=== PATIENT | male | born 1995 | race Caucasian/White ===

== ENCOUNTER 2021-03-11 12:40 | Emergency (ER) | payer SELFPAY ==
[2021-03-11] MEDS ORDERED: Ondansetron 4 MG/2 ML SDV IVPUSH ONE (13:28)
[2021-03-11] MEDS ORDERED: Sodium Chloride 0.9% 10 ML Syringe FLUSH PRN (13:28)
[2021-03-11] MEDS ORDERED: Sodium Chloride 0.9% 1,000 ML IV SCH (13:30)
--- NOTE | 2021-03-11 15:31 | EDM.PDOCBH ---
ED HPI GENERAL MEDICAL PROBLEM - General Chief Complaint: Drug or Alcohol Abuse Stated Complaint: ALCOHOL DETOX Time Seen by Provider: 03/11/21 12:52 Source of Information: Reports: Patient, Family History Limitations: Reports: Intoxication - History of Present Illness INITIAL COMMENTS - FREE TEXT/NARRATIVE: The patient presents with his girlfriend for alcohol intoxication. [place] [address] [place]. He said he started drinking at 9:30am. He has been stressed out over work, a coworker and family stuff. He was drinking whiskey. He does not drink like this usually. He drinks maybe twice per week. He has no headache, chest pain, fever, chills, cough, abdominal pain, nausea or vomiting. He denies taking any drugs. Onset: Gradual Duration: Hour(s): Severity: Moderate Improves with: Reports: None Worsens with: Reports: None Associated Symptoms: Reports: No Other Symptoms - Related Data Allergies Allergy/AdvReac Type Severity Reaction Status Date / Time phenol [From Chloraseptic] Allergy Swollen Verified 03/11/21 13:00 Tongue Home Meds: Home Meds . [No Known Home Meds] 03/11/21 [History] Past Medical History - Past Health History Medical/Surgical History: Denies Medical/Surgical History - Infectious Disease History Infectious Disease History: Reports: Novel Coronavirus Social & Family History - Family History Family Medical History: No Pertinent Family History Cardiac: Reports: [place] : Reports: Renal Disease/Insufficiency, Other (See Below) Other Family History: grandfather and uncle that required kidney transplant Endocrine/Metabolic: Reports: Diabetes, Type I Oncologic: Reports: Lung - Tobacco Use Tobacco Use Status *Q: Current Every Day Tobacco User Years of Tobacco use: 10 Packs/Tins Daily: 1 - Caffeine Use Caffeine Use: Reports: Energy Drinks, Soda - Alcohol Use Days Per Week of Alcohol Use: 2 Number of Drinks Per Day: 10 Total Drinks Per Week: 20 - Recreational Drug Use Recreational Drug Use: No ED ROS GENERAL - Review of Systems Review Of Systems: See Below Constitutional: Reports: No Symptoms HEENT: Reports: No Symptoms Respiratory: Reports: No Symptoms Cardiovascular: Reports: No Symptoms Endocrine: Reports: No Symptoms GI/Abdominal: Reports: No Symptoms : Reports: No Symptoms Musculoskeletal: Reports: No Symptoms ED EXAM, BEHAVIORAL HEALTH - Physical Exam Exam: See Below Exam Limited By: Intoxication General Appearance: Alert, No Apparent Distress Ears: Normal External Exam Nose: Normal Inspection Head: Atraumatic, Normocephalic Neck: Normal Inspection Respiratory/Chest: No Respiratory Distress, Lungs Clear, Normal Breath Sounds Cardiovascular: Regular Rate, Rhythm, No Edema, No Murmur GI/Abdominal: Soft, Non-Tender, No Organomegaly, No Mass Back Exam: Normal Inspection Extremities: Normal Inspection COURSE, BEHAVIORAL HEALTH COMP - Course Vital Signs: Last Vital Signs Temp 97.9 F 03/11/21 12:50 Pulse 91 03/11/21 12:50 Resp 16 03/11/21 12:50 BP 130/82 03/11/21 12:50 Pulse Ox 94 L 03/11/21 12:50 Orders, Labs, Meds: Active Orders 24 hr Category Date Time Status Cardiac Monitoring [RC] . DIRECTED Care 03/11/21 13:28 Active Peripheral IV Care [RC] . DIRECTED Care 03/11/21 13:28 Active DRUG SCREEN, URINE [URCHEM] Stat Lab 03/11/21 13:28 Ordered Sodium Chloride 0.9% [Normal Saline] 1,000 ml Med 03/11/21 13:30 Active IV .BOLUS Sodium Chloride 0.9% [Saline Flush] Med 03/11/21 13:28 Active 10 ml FLUSH ASDIRECTED PRN ED Antiemetic Medication Reflex [OM.PC] Stat Oth 03/11/21 13:29 Ordered Peripheral IV Insertion Adult [OM.PC] Stat Oth 03/11/21 13:28 Ordered Medication Orders Sodium Chloride (Normal Saline) 1,000 mls @ 1,000 mls/hr IV .BOLUS LAURO Last Admin: 03/11/21 13:46 Dose: 1,000 mls/hr Documented by: LEANNE Sodium Chloride (Sodium Chloride 0.9% 10 Ml Syringe) 10 ml FLUSH ASDIRECTED PRN PRN Reason: Keep Vein Open Last Admin: 03/11/21 13:47 Dose: 10 ml Documented by: LEANNE Laboratory Tests 03/11/21 03/11/21 Range/Units 13:38 13:38 WBC 7.95 (4.23-9.07) K/mm3 RBC 4.93 (4.63-6.08) M/mm3 Hgb 15.7 (13.7-17.5) gm/dl Hct 45.6 (40.1-51.0) % MCV 92.5 H (79.0-92.2) fl MCH 31.8 (25.7-32.2) pg MCHC 34.4 (32.2-35.5) g/dl RDW Std Deviation 43.5 (35.1-43.9) fL Plt Count 287 (163-337) K/mm3 MPV 9.4 (9.4-12.3) fl Neut % (Auto) 42.9 (34.0-67.9) % Lymph % (Auto) 50.9 (21.8-53.1) % Story % (Auto) 3.9 L (5.3-12.2) % Eos % (Auto) 1.5 (0.8-7.0) Baso % (Auto) 0.5 (0.1-1.2) % Neut # (Auto) 3.41 (1.78-5.38) K/mm3 Lymph # (Auto) 4.05 H (1.32-3.57) K/mm3 Story # (Auto) 0.31 (0.30-0.82) K/mm3 Eos # (Auto) 0.12 (0.04-0.54) K/mm3 Baso # (Auto) 0.04 (0.01-0.08) K/mm3 Sodium 147 H (136-145) mEq/L Potassium 3.5 (3.5-5.1) mEq/L Chloride 108 H (98-107) mEq/L Carbon Dioxide 27 (21-32) mEq/L Anion Gap 15.5 H (5-15) BUN 5 L (7-18) mg/dL Creatinine 0.9 (0.7-1.3) mg/dL Est Cr Clr Drug Dosing 121.54 mL/min Estimated GFR (MDRD) > 60 (>60) mL/min BUN/Creatinine Ratio 5.6 L (14-18) Glucose 90 (70-99) mg/dL Calcium 8.5 (8.5-10.1) mg/dL Total Bilirubin 0.5 (0.2-1.0) mg/dL AST 55 H (15-37) U/L ALT 46 (16-63) U/L Alkaline Phosphatase 92 (46-116) U/L Total Protein 8.2 (6.4-8.2) g/dl Albumin 4.5 (3.4-5.0) g/dl Globulin 3.7 gm/dL Albumin/Globulin Ratio 1.2 (1-2) Lipase 71 L (73-393) U/L Ethyl Alcohol 0.44 (0.00) gm% Medications Generic Name Dose Route Start Last Admin Trade Name Freq PRN Reason Stop Dose Admin Sodium Chloride 1,000 mls @ 1,000 mls/hr 03/11/21 13:30 03/11/21 13:46 Normal Saline IV 1,000 mls/hr .BOLUS LAURO Administration Sodium Chloride 10 ml 03/11/21 13:28 03/11/21 13:47 Sodium Chloride 0.9% 10 Ml Syringe FLUSH 10 ml ASDIRECTED PRN Administration Keep Vein Open Discontinued Medications Generic Name Dose Route Start Last Admin Trade Name Freq PRN Reason Stop Dose Admin Ondansetron HCl 4 mg 03/11/21 13:28 03/11/21 13:47 Ondansetron 4 Mg/2 Ml Sdv IVPUSH 03/11/21 13:29 4 mg ONETIME ONE Administration Re-Assessment/Re-Exam: I ordered an IV NS 1L bolus, zofran 4mg IV, and labs. His CBC looks good. His Na was a little elevated at 147. His anion gap was elevated at 15.5. His AST is elevated at 55. His lipase is low at 71. His ETOH is very high at 0.44. He is looking to get some help. Denisse our drug abuse social worker was not in this afternoon. I will have him follow up with [facility] tomorrow morning. Departure - Departure Time of Disposition: 15:50 Disposition: Home, Self-Care 01 Condition: Good Clinical Impression: Alcohol abuse Alcohol intoxication Qualifiers: Complication of substance-induced condition: uncomplicated Qualified Code(s): F10.920 - Alcohol use, unspecified with intoxication, uncomplicated - Discharge Information *PRESCRIPTION DRUG MONITORING PROGRAM REVIEWED*: Not Applicable *COPY OF PRESCRIPTION DRUG MONITORING REPORT IN PATIENT REE: Not Applicable Referrals: PCP,None [Primary Care Provider] - Forms: ED Department Discharge Additional Instructions: Call [facility] at or 211. They do have walk in openings in the morning at 8am. Drink plenty of fluids. Please return if you are worse. Sepsis Event Note (ED) - Focused Exam Vital Signs: Vital Signs Temp Pulse Resp BP Pulse Ox 03/11/21 12:50 97.9 F 91 16 130/82 94 L - My Orders Last 24 Hours: My Active Orders 03/11/21 13:28 Cardiac Monitoring [RC] . DIRECTED Peripheral IV Care [RC] . DIRECTED DRUG SCREEN, URINE [URCHEM] Stat Sodium Chloride 0.9% [Saline Flush] 10 ml FLUSH ASDIRECTED PRN Peripheral IV Insertion Adult [OM.PC] Stat 03/11/21 13:29 ED Antiemetic Medication Reflex [OM.PC] Stat 03/11/21 13:30 Sodium Chloride 0.9% [Normal Saline] 1,000 ml IV .BOLUS - Assessment/Plan Last 24 Hours: My Active Orders 03/11/21 13:28 Cardiac Monitoring [RC] . DIRECTED Peripheral IV Care [RC] . DIRECTED DRUG SCREEN, URINE [URCHEM] Stat Sodium Chloride 0.9% [Saline Flush] 10 ml FLUSH ASDIRECTED PRN Peripheral IV Insertion Adult [OM.PC] Stat 03/11/21 13:29 ED Antiemetic Medication Reflex [OM.PC] Stat 03/11/21 13:30 Sodium Chloride 0.9% [Normal Saline] 1,000 ml IV .BOLUS
== END 2021-03-11 16:00 | disposition home or self-care (01) ==
LOC: JD.ED 12:40
DX: F10.129 Alcohol abuse with intoxication, unspecified (principal); Z88.8 Allergy status to other drugs, medicaments and biological substances; Z86.16 Personal history of COVID-19; Z72.0 Tobacco use; Y90.5 Blood alcohol level of 100-119 mg/100 ml
CPT/HCPCS: 36415; 80053; 80307; 83690; 85025; 96374; 99284; J2405; J7030

== ENCOUNTER 2021-03-13 14:15 | Emergency (ER) | payer SELFPAY ==
[2021-03-13] MEDS ORDERED: HYDROmorphone 1 MG/ML Syringe IVPUSH ONE ×2 (15:24→16:58)
[2021-03-13] MEDS ORDERED: Sodium Chloride 0.9% 10 ML Syringe FLUSH PRN (15:24)
--- NOTE | 2021-03-13 15:27 | EDM.PDOC ---
ED HPI GENERAL MEDICAL PROBLEM - General Chief Complaint: Upper Extremity Injury/Pain Stated Complaint: R ARM/WRIST INJURY Time Seen by Provider: 03/13/21 15:15 Source of Information: Reports: Patient, RN Notes Reviewed History Limitations: Reports: No Limitations - History of Present Illness INITIAL COMMENTS - FREE TEXT/NARRATIVE: Patient is a 25-year-old male who presents to the ER for evaluation of a right wrist/forearm injury. Patient was helping his father at his house, and was up on some scaffolding which is about 6 feet off of the ground. Patient fell off of a scaffolding, and fell onto an outstretched right arm. There is a visible deformity to the right wrist. But the patient states he is having pain all the way up close to his elbow. He did take some tramadol at home for pain management and states this did help the pain a little bit. Notes that he had a breakfast burrito at about 10:30 AM and that was his last food intake. Patient denies any other sick-like symptoms, fever/chills, cough/shortness of breath, nausea/vomiting/diarrhea. Patient denies any numbness or tingling in his hand, and he can wiggle his fingers but states it is very painful to do so. Right Wrist Pain Score (Numeric/FACES): 10 - Related Data Allergies Allergy/AdvReac Type Severity Reaction Status Date / Time phenol [From Chloraseptic] Allergy Severe Swollen Verified 03/13/21 15:16 Tongue Home Meds: Home Meds oxyCODONE HCl/Acetaminophen [Oxycodone-Acetaminophen 5-325] 1 each PO Q6H #20 tablet 03/13/21 [Rx] Past Medical History - Past Health History Medical/Surgical History: Denies Medical/Surgical History - Infectious Disease History Infectious Disease History: Reports: Novel Coronavirus Social & Family History - Family History Family Medical History: No Pertinent Family History Cardiac: Reports: [place] : Reports: Renal Disease/Insufficiency, Other (See Below) Other Family History: grandfather and uncle that required kidney transplant Endocrine/Metabolic: Reports: Diabetes, Type I Oncologic: Reports: Lung - Tobacco Use Tobacco Use Status *Q: Current Every Day Tobacco User Years of Tobacco use: 6 Packs/Tins Daily: 0.5 - Caffeine Use Caffeine Use: Reports: Soda - Recreational Drug Use Recreational Drug Use: No Review of Systems - Review of Systems Review Of Systems: Comprehensive ROS is negative, except as noted in HPI. ED EXAM, GENERAL - Physical Exam Exam: See Below Exam Limited By: No Limitations General Appearance: Alert, WD/WN, No Apparent Distress Respiratory/Chest: No Respiratory Distress, Lungs Clear, Normal Breath Sounds, No Accessory Muscle Use, Chest Non-Tender Cardiovascular: Normal Peripheral Pulses, Regular Rate, Rhythm, No Edema Peripheral Pulses: 2+: Radial (L), Radial (R) Extremities: Normal Capillary Refill, Limited Range of Motion (of right wrist d/t pain; pt can move his fingers, but does states it is painful to do so.) Neurological: Alert, Oriented, Normal Cognition, No Motor/Sensory Deficits Psychiatric: Normal Affect, Normal Mood Skin Exam: Warm, Dry, Intact, Normal Color, No Rash ED TRAUMA EXTREMITY PROCEDURES - Splinting Right Upper Extremity Splint Site: R wrist Pre-Procedure NV Status: Normal Post-Procedure NV Status: Normal Splint Material: Fiberglass Splint Design: Gutter (ulnar gutter short arm) Applied & Form Fitted By: Provider, Nurse Provider Post-Splint Application NV Check: NV Status Normal, Good Position Complications: No Course - Vital Signs Last Recorded V/S: Last Vital Signs Temp 97.6 F 03/13/21 15:19 Pulse 73 03/13/21 15:19 Resp 20 03/13/21 15:19 BP 130/86 03/13/21 15:19 Pulse Ox 100 03/13/21 15:19 - Orders/Labs/Meds Orders: Active Orders 24 hr Category Date Time Status Peripheral IV Care [RC] . DIRECTED Care 03/13/21 15:24 Ordered Forearm 2V Rt [CR] Stat Exams 03/13/21 15:17 Ordered Wrist 2V Rt [CR] Stat Exams 03/13/21 15:17 Taken Sodium Chloride 0.9% [Saline Flush] Med 03/13/21 15:24 Ordered 10 ml FLUSH ASDIRECTED PRN Peripheral IV Insertion Adult [OM.PC] Routine Oth 03/13/21 15:24 Ordered Medication Orders Sodium Chloride (Sodium Chloride 0.9% 10 Ml Syringe) 10 ml FLUSH ASDIRECTED PRN PRN Reason: Keep Vein Open Last Admin: 03/13/21 15:54 Dose: 10 ml Documented by: Meds: Medications Generic Name Dose Route Start Last Admin Trade Name Collette PRN Reason Stop Dose Admin Sodium Chloride 10 ml 03/13/21 15:24 03/13/21 15:54 Sodium Chloride 0.9% 10 Ml Syringe FLUSH 10 ml ASDIRECTED PRN Administration Keep Vein Open Discontinued Medications Generic Name Dose Route Start Last Admin Trade Name Collette PRN Reason Stop Dose Admin Hydromorphone HCl 1 mg 03/13/21 15:24 03/13/21 15:54 Hydromorphone 1 Mg/Ml Syringe IVPUSH 03/13/21 15:25 1 mg ONETIME ONE Administration Hydromorphone HCl 1 mg 03/13/21 16:58 03/13/21 17:14 Hydromorphone 1 Mg/Ml Syringe IVPUSH 03/13/21 16:59 1 mg ONETIME ONE Administration - Re-Assessments/Exams Free Text/Narrative Re-Assessment/Exam: 03/13/21 15:26 Patient presents to the ER for a right wrist/forearm injury. X-rays will be obtained however there is a visible deformity to his right wrist, which will likely need some sort of reduction for ongoing Ortho management. Patient will be kept n.p.o. while in the ER. He will be given 1mg IV Dilaudid for pain management. 03/13/21 15:52 Patient's wrist x-ray has been performed, there is a distal right radius fracture that looks to be impacted, angulated, and does violate the intra- articular space. He also has an ulnar styloid fracture. X-ray films reviewed by myself and Dr. Cole, I have pushed the films to [facility] in [place], to have Ortho review, to see if they would recommend trying to reduce this much at all or just splint and have him follow-up for surgical management. 03/13/21 16:13 I was able to speak with Dr. Askew Ortho specialist on-call at [facility], and he does state that this is impacted, and would likely not reduce well. He does recommend splinting the injury, and have him follow-up with Ortho for further management. I did give a courtesy call to Dr. Oliver as well even though he is not on-call, and he did agree to see the patient in clinic early next week. Departure - Departure Time of Disposition: 16:24 Disposition: Home, Self-Care 01 Condition: Good Clinical Impression: Distal radius fracture, right Qualifiers: Encounter type: initial encounter Fracture type: closed Fracture morphology: other intra-articular Qualified Code(s): S52.571A - Other intraarticular fracture of lower end of right radius, initial encounter for closed fracture Fracture of right ulnar styloid Qualifiers: Encounter type: initial encounter Fracture type: closed Fracture alignment: displaced Qualified Code(s): S52.611A - Displaced fracture of right ulna styloid process, initial encounter for closed fracture - Discharge Information *PRESCRIPTION DRUG MONITORING PROGRAM REVIEWED*: Yes *COPY OF PRESCRIPTION DRUG MONITORING REPORT IN PATIENT REE: No Instructions: Wrist Fracture Treated With Immobilization, [place] Referrals: PCP,None [Primary Care Provider] - Forms: ED Department Discharge Additional Instructions: You have been evaluated in the ED for your right wrist injury. Your x-ray demonstrated an angulated, impacted fracture of your distal right radius, that does seem to violate the articular space. This was splinted to immobilize the area at this time. You also have an ulnar styloid fracture. Please use ice as tolerated to the affected area. You may elevate the affected area to provide further relief from swelling. You may take Tylenol 500 mg or ibuprofen 600mg q6 hrs for pain relief. Please do so until you have a tolerable level of pain with activity. Do not exceed 4000mg Tylenol, Do not exceed 3200mg ibuprofen in a 24 hour time period. You were given a prescription for a strong pain medication, oxycodone/acetaminophen 5/325, please take 1 tab every 6 hours as needed for pain not relieved by Tylenol or ibuprofen alone. Please note this does contain Tylenol in it, so do not take more than 4000 mg in a 24-hour time span. These medications can be addictive, so please take as few as possible to achieve adequate pain control. These meds can also be quite constipating, recommend that you increase your oral fluid intake and take a stool softener like MiraLAX while taking these medications. This medication was electronically sent to the [place] pharmacy located in the [facility] [employer] store. Please call Ortho for follow-up and further evaluation Dr. Oliver is our orthopedic surgeon, his office number is [phone]. Please call and set up an appointment as soon as possible for further management. Please return to ED if your symptoms should change or worsen. Sepsis Event Note (ED) - Focused Exam Vital Signs: Vital Signs Temp Pulse Resp BP Pulse Ox 03/13/21 15:19 97.6 F 73 20 130/86 100 - My Orders Last 24 Hours: My Active Orders 03/13/21 15:17 Forearm 2V Rt [CR] Stat Wrist 2V Rt [CR] Stat 03/13/21 15:24 Peripheral IV Care [RC] . DIRECTED Sodium Chloride 0.9% [Saline Flush] 10 ml FLUSH ASDIRECTED PRN Peripheral IV Insertion Adult [OM.PC] Routine - Assessment/Plan Last 24 Hours: My Active Orders 03/13/21 15:17 Forearm 2V Rt [CR] Stat Wrist 2V Rt [CR] Stat 03/13/21 15:24 Peripheral IV Care [RC] . DIRECTED Sodium Chloride 0.9% [Saline Flush] 10 ml FLUSH ASDIRECTED PRN Peripheral IV Insertion Adult [OM.PC] Routine
--- NOTE | 2021-03-14 10:17 | CR ---
Right wrist: 3 views of the right wrist were obtained. Comparison: No previous study. Comminuted distal radial fracture is seen with articular extension. Posterior impaction is noted. Slightly comminuted ulnar styloid process fracture is seen. Soft tissue swelling is noted. No additional bony abnormality is appreciated. Impression: 1. Comminuted distal right radial fracture with articular extension and angulation. 2. Slightly comminuted ulnar styloid avulsion fracture. 3. Soft tissue swelling. Diagnostic code #3
--- NOTE | 2021-03-14 10:17 | CR ---
Right forearm: 2 views of the right forearm were obtained. Comparison: No prior forearm study is available. Comminuted distal radial fracture is seen with articular extension and posterior impaction. Several fracture lines are noted within the radial styloid process. Other portions of the right radius and ulna appear intact. Soft tissue swelling is noted distally. Impression: 1. Wrist fracture as described above with soft tissue swelling. 2. Other portions of the 2-view right forearm study are unremarkable. Diagnostic code #3
== END 2021-03-13 18:00 | disposition home or self-care (01) ==
LOC: JD.ED 14:15
DX: S52.611A Displaced fracture of right ulna styloid process, initial encounter for closed fracture (principal); S52.571A Other intraarticular fracture of lower end of right radius, initial encounter for closed fracture; Z86.16 Personal history of COVID-19; Z72.0 Tobacco use; Z88.8 Allergy status to other drugs, medicaments and biological substances; W12.XXXA Fall on and from scaffolding, initial encounter; Y92.009 Unspecified place in unspecified non-institutional (private) residence as the place of occurrence of the external cause
CPT/HCPCS: 29125; 73090; 73100; 96374; 96376; 99283; J1170

== ENCOUNTER → 2021-03-19 | Day surgery (SDC) | payer SELFPAY ==
[~2021-03-19] MED LIST: Acetaminophen/HYDROcodone 325-5 MG Tab PO PRN; Dexamethasone 4 MG/ML 5 ML MDV ONE; Ketamine 500 mg/10 ML MDV ONE; Ketorolac 30 MG/ML SDV ONE; Lactated Ringers 1,000 ML IV SCH; Lidocaine 1% 4 ML ONE; Lidocaine 1%/Sod Bicarbonate in NS 8.4% 1 ML Syringe IDERM PRN; Midazolam 1 MG/ML 2 ML SDV ONE; Ondansetron 4 MG/2 ML SDV ONE; Propofol 200 MG/20 ML SDV ONE; Sodium Chloride 0.9% 10 ML Syringe FLUSH PRN; fentaNYL 100 MCG/2 ML SDV ONE
--- NOTE | 2021-03-19 12:03 | PCM.PREANE ---
Preanesthetic Assessment - Procedure Proposed Procedure: Closed reduction right arm with casting - Anesthesia/Transfusion/Family Hx Anesthesia History: Prior Anesthesia Without Reaction Family History of Anesthesia Reaction: No Transfusion History: No Prior Transfusion(s) - Review of Systems General: No Symptoms Pulmonary: No Symptoms Cardiovascular: No Symptoms Gastrointestinal: No Symptoms Neurological: No Symptoms Other: Reports: None - Physical Assessment NPO Status Date: 03/18/21 NPO Status Time: 19:00 Height: 1.83 m Weight: 62 kg ASA Class: 2 Mental Status: Alert & Oriented x3 Airway Class: Mallampati = 2 Dentition: Reports: Normal Dentition Thyro-Mental Finger Breadths: 3 Mouth Opening Finger Breadths: 3 ROM/Head Extension: Full Lungs: Clear to Auscultation, Normal Respiratory Effort Cardiovascular: Regular Rate, Regular Rhythm - Allergies Allergies/Adverse Reactions: Allergies Allergy/AdvReac Type Severity Reaction Status Date / Time phenol [From Chloraseptic] Allergy Severe Swollen Verified 03/18/21 16:09 Tongue - Blood Blood Available: No Product(s) Available: None - Anesthesia Plan Pre-Op Medication Ordered: None - Acknowledgements Anesthesia Type Planned: MAC (if closed reduction, general if ORIF) Pt an Appropriate Candidate for the Planned Anesthesia: Yes Alternatives and Risks of Anesthesia Discussed w Pt/Guardian: Yes Pt/Guardian Understands and Agrees with Anesthesia Plan: Yes PreAnesthesia Questionnaire - Past Health History Medical/Surgical History: Denies Medical/Surgical History - Infectious Disease History Infectious Disease History: Reports: Novel Coronavirus - SUBSTANCE USE Tobacco Use Status *Q: Current Every Day Tobacco User Recreational Drug Use History: No - HOME MEDS Home Medications: Home Meds Acetaminophen [Tylenol Extra Strength] 1,000 mg PO Q6H PRN 03/18/21 [History] Hydrocodone/Acetaminophen [HYDROcodone-Acetaminophen 5-325 MG] 1 - 2 each PO Q6H PRN #30 tablet 03/19/21 [Rx] - CURRENT (IN HOUSE) MEDS Current Meds: Current Medications Lactated Ringer's (Ringers, Lactated) 1,000 mls @ 125 mls/hr IV ASDIRECTED LAURO Stop: 03/19/21 23:00 Lidocaine/Sodium Bicarbonate (Lidocaine 1%/Sod Bicarbonate In Ns 8.4% 1 Ml Syringe) 0.25 ml IDERM ONETIME PRN PRN Reason: Prior to IV Start Stop: 03/19/21 18:00 Sodium Chloride (Sodium Chloride 0.9% 10 Ml Syringe) 10 ml FLUSH ASDIRECTED PRN PRN Reason: Keep Vein Open Stop: 03/19/21 18:00 Discontinued Medications Dexamethasone (Dexamethasone 4 Mg/Ml 5 Ml Mdv) Confirm Administered Dose 20 mg .ROUTE .STK-MED ONE Stop: 03/19/21 11:56 Fentanyl (Fentanyl 100 Mcg/2 Ml Sdv) Confirm Administered Dose 100 mcg .ROUTE .STK-MED ONE Stop: 03/19/21 11:53 Fentanyl (Fentanyl 100 Mcg/2 Ml Sdv) Confirm Administered Dose 100 mcg .ROUTE .STK-MED ONE Stop: 03/19/21 11:54 Lidocaine HCl (Xylocaine-Mpf 1%) Confirm Administered Dose 4 mls @ as directed .ROUTE .STK-MED ONE Stop: 03/19/21 11:56 Ketamine HCl (Ketamine 500 Mg/10 Ml Mdv) Confirm Administered Dose 500 mg .ROUTE .STK-MED ONE Stop: 03/19/21 11:55 Midazolam HCl (Midazolam 1 Mg/Ml 2 Ml Sdv) Confirm Administered Dose 2 mg .ROUTE .STK-MED ONE Stop: 03/19/21 11:54 Ondansetron HCl (Ondansetron 4 Mg/2 Ml Sdv) Confirm Administered Dose 4 mg .ROUTE .STK-MED ONE Stop: 03/19/21 11:56 Propofol (Propofol 200 Mg/20 Ml Sdv) Confirm Administered Dose 200 mg .ROUTE .STK-MED ONE Stop: 03/19/21 11:53
--- NOTE | 2021-03-19 13:20 | PCM48HPAN ---
Post Anesthesia Note - EVALUATION WITHIN 48HRS OF ANESTHETIC Vital Signs in Normal Range: Yes Patient Participated in Evaluation: Yes Respiratory Function Stable: Yes Airway Patent: Yes Cardiovascular Function Stable: Yes Hydration Status Stable: Yes Pain Control Satisfactory: Yes Nausea and Vomiting Control Satisfactory: Yes Mental Status Recovered: Yes
--- NOTE | 2021-03-19 13:49 | CR ---
Right wrist: 7 fluoroscopic spot views of the right wrist were obtained during procedural reduction and fixation. Comparison Right wrist and forearm plain films of 03/13/21. Study shows reduction of previous displaced distal radial fracture. Fracture within the ulnar styloid process also appears reduced. Alignment is close to anatomic. Final 2 films show fiberglass cast in place. Impression: 1. Procedural study as noted above. Diagnostic code #2
--- NOTE | 2021-03-29 10:52 | PCM.OPNOTE ---
- General Post-Op/Procedure Note Date of Surgery/Procedure: 03/19/21 Operative Procedure(s): closed reduction and casting of right distal radius fracture Pre Op Diagnosis: displaced right distal radius fracture Post-Op Diagnosis: Same Anesthesia Technique: MAC Primary Surgeon: Darin Oliver Anesthesia Provider: Darrian Kelley Mixing Picker Tender: Shanelle Mo EBL in mLs: 0 Complications: None Condition: Good
--- NOTE | 2021-03-29 11:50 | OR ---
DATE OF OPERATION: 03/19/2021 SURGEON: Darin Oliver MD OPERATION PERFORMED: Closed reduction and short-arm casting, right distal radius fracture. PREOPERATIVE DIAGNOSIS: Displaced right distal radius fracture. POSTOPERATIVE DIAGNOSIS: Displaced right distal radius fracture. ANESTHESIA: MAC. ANESTHESIA PROVIDER: Darrian Kelley. SCREW MACHINE HAND: Shanelle Mo LPN ESTIMATED BLOOD LOSS: Not applicable. COMPLICATIONS: None. CONDITION: Stable. DESCRIPTION OF PROCEDURE: The patient was identified in the preoperative holding area. Proper site was marked and identified by the surgeon. The patient was taken back to the operating theater where, after adequate anesthesia, the patient had a time-out performed. At this time, closed reduction maneuver of manual traction and radial deviation as well as volar traction was undertaken to the right distal radius. He was found to have anatomic reduction on both AP and lateral views and 23-degree lateral views of the extra-articular right distal radius fracture. At this time, undercast padding was placed as well as a stockinette, and a short- arm cast was applied with 3-point molding in to correct for the deformity applied at that time. C-arm fluoroscopy was again utilized showing near anatomic reduction on all views. The patient was sent to the PACU in stable condition. He tolerated the procedure well. REBECCA /[id number]
== END | disposition home or self-care (01) ==
LOC: JD.SDS 11:22
PROVIDERS: ATTEND Orthopaedic Surgery
DX: S52.571A Other intraarticular fracture of lower end of right radius, initial encounter for closed fracture (principal); S52.511A Displaced fracture of right radial styloid process, initial encounter for closed fracture; F17.210 Nicotine dependence, cigarettes, uncomplicated; Y92.009 Unspecified place in unspecified non-institutional (private) residence as the place of occurrence of the external cause; Z88.8 Allergy status to other drugs, medicaments and biological substances; W17.89XA Other fall from one level to another, initial encounter; Z79.899 Other long term (current) drug therapy; Z86.16 Personal history of COVID-19
CPT/HCPCS: 25605; 76000; A9270; J1100; J1885; J2250; J2405; J2704; J3010; J7120; 01820

== ENCOUNTER 2021-07-06 11:46 | Emergency (ER) | payer SELFPAY ==
[2021-07-06] MEDS ORDERED: Sodium Chloride 0.9% 1,000 ML IV STA ×3 (12:34→17:00)
[2021-07-06] MEDS ORDERED: Sodium Chloride 0.9% 10 ML Syringe FLUSH PRN (12:34)
[2021-07-06] MEDS ORDERED: Ondansetron 4 MG/2 ML SDV IVPUSH ONE (12:54)
== END 2021-07-06 22:55 | disposition other institution (70) ==
LOC: JD.ED 11:46
DX: F10.129 Alcohol abuse with intoxication, unspecified (principal); Z88.8 Allergy status to other drugs, medicaments and biological substances; Z72.0 Tobacco use; Y90.5 Blood alcohol level of 100-119 mg/100 ml
CPT/HCPCS: 36415; 80053; 80306; 80307; 85025; 96374; 99284; J2405; J7030

== ENCOUNTER 2021-07-08 17:50 | Emergency (ER) | payer SELFPAY | END 2021-07-08 19:55 | disposition home or self-care (01) | LOC: JD.ED 17:50 | DX: F10.10 Alcohol abuse, uncomplicated (principal); Y90.0 Blood alcohol level of less than 20 mg/100 ml; Z88.8 Allergy status to other drugs, medicaments and biological substances; Z72.0 Tobacco use; Z86.16 Personal history of COVID-19 | CPT/HCPCS: 36415; 80307; 99284 ==

== ENCOUNTER 2021-07-09 09:34 | Emergency (ER) | payer SELFPAY ==
[2021-07-09] MEDS ORDERED: LORazepam 2 MG/ML SDV IVPUSH ONE (10:25)
[2021-07-09] MEDS ORDERED: Ondansetron 4 MG/2 ML SDV IVPUSH ONE (10:25)
[2021-07-09] MEDS ORDERED: Sodium Chloride 0.9% 1,000 ML IV ONE (10:26)
[2021-07-09 11:30] LABS: ACETAMINOPHEN 0 ug/mL (10-30)
== END 2021-07-09 14:20 | disposition other institution (70) ==
LOC: JD.ED 09:34
DX: R44.0 Auditory hallucinations (principal); F10.129 Alcohol abuse with intoxication, unspecified; Z88.8 Allergy status to other drugs, medicaments and biological substances; Z86.16 Personal history of COVID-19; Y90.5 Blood alcohol level of 100-119 mg/100 ml
CPT/HCPCS: 36415; 80053; 80143; 80179; 80306; 80307; 81001; 84443; 85007; 85027; 96374; 96375; 99285; J2060; J2405; J7030

== ENCOUNTER 2021-07-09 16:41 | Emergency (ER) | payer SELFPAY ==
[2021-07-09] MEDS ORDERED: chlordiazePOXIDE 25 MG Cap PO ONE (17:58)
== END 2021-07-09 18:24 ==
LOC: JD.ED 16:41
DX: R44.0 Auditory hallucinations (principal); R44.1 Visual hallucinations; F10.10 Alcohol abuse, uncomplicated; Z88.8 Allergy status to other drugs, medicaments and biological substances; Z86.16 Personal history of COVID-19
CPT/HCPCS: 99285; A9270

== ENCOUNTER 2021-11-21 17:04 | Emergency (ER) | payer MEDICAID, OTHER | END 2021-11-21 17:45 | LOC: JD.ED 17:04 | DX: F10.929 Alcohol use, unspecified with intoxication, unspecified (principal); F17.210 Nicotine dependence, cigarettes, uncomplicated; Z86.16 Personal history of COVID-19; Z88.8 Allergy status to other drugs, medicaments and biological substances | CPT/HCPCS: 99282; 99284 ==

== ENCOUNTER 2021-12-21 11:28 | Emergency (ER) | payer MEDICAID | END 2021-12-21 12:46 | disposition home or self-care (01) | LOC: JD.ED 11:28 | DX: F10.10 Alcohol abuse, uncomplicated (principal); F17.210 Nicotine dependence, cigarettes, uncomplicated; Z91.048 Other nonmedicinal substance allergy status | CPT/HCPCS: 99282; 99284 ==

== ENCOUNTER 2021-12-22 11:04 | Emergency (ER) | payer MEDICAID ==
[2021-12-22] MEDS ORDERED: Sodium Chloride 0.9% 1,000 ML IV STA (11:38)
== END 2021-12-22 17:45 | disposition home or self-care (01) ==
LOC: JD.ED 11:04
DX: F10.230 Alcohol dependence with withdrawal, uncomplicated (principal); F17.210 Nicotine dependence, cigarettes, uncomplicated; Z88.8 Allergy status to other drugs, medicaments and biological substances; Y90.1 Blood alcohol level of 20-39 mg/100 ml
CPT/HCPCS: 36415; 80053; 80143; 80179; 80306; 80307; 84443; 85007; 85027; 93005; 96360; 99284; J7030; 93010; 99283

== ENCOUNTER 2022-01-17 12:44 | Emergency (ER) | payer MEDICAID ==
[2022-01-17] MEDS ORDERED: Sodium Chloride 0.9% 10 ML Syringe FLUSH PRN (13:19)
[2022-01-17] MEDS ORDERED: Ondansetron 4 MG/2 ML SDV IVPUSH ONE (13:28)
[2022-01-17] MEDS ORDERED: Sodium Chloride 0.9% 1,000 ML IV ONE (13:28)
[2022-01-17] MEDS ORDERED: Lactated Ringers 1,000 ML IV ONE ×3 (14:43→17:47)
== END 2022-01-17 19:24 | disposition other institution (70) ==
LOC: JD.ED 12:44
DX: F10.920 Alcohol use, unspecified with intoxication, uncomplicated (principal); Z88.8 Allergy status to other drugs, medicaments and biological substances; Z72.0 Tobacco use; Z79.899 Other long term (current) drug therapy
CPT/HCPCS: 36415; 80053; 80143; 80179; 80306; 80307; 81003; 83735; 84443; 85025; 87635; 93005; 96361; 96374; 99283; J2405; J3490; J7030; J7120; U0002

== ENCOUNTER 2022-03-12 03:17 | Emergency (ER) | payer MEDICAID ==
[2022-03-12] MEDS ORDERED: Sodium Chloride 0.9% 1,000 ML IV SCH (09:45)
[2022-03-12] MEDS: Thiamine 100 MG in Sodium Chloride 0.9% 100 ML IV ONE ×2 (10:55→11:06)
[2022-03-12] MEDS ORDERED: Thiamine 200 MG/2 ML MDV IVPUSH ONE (11:03)
[2022-03-12] MEDS ORDERED: LORazepam 2 MG/ML SDV IVPUSH ONE (11:58)
[2022-03-12] MEDS ORDERED: LORazepam 2 MG/ML SDV ONE (12:00)
== END 2022-03-12 14:35 | disposition home or self-care (01) ==
LOC: JD.ED 03:17
DX: F10.10 Alcohol abuse, uncomplicated (principal); R00.0 Tachycardia, unspecified; D69.6 Thrombocytopenia, unspecified; F17.210 Nicotine dependence, cigarettes, uncomplicated; Z88.8 Allergy status to other drugs, medicaments and biological substances; Z20.822 Contact with and (suspected) exposure to COVID-19
CPT/HCPCS: 36415; 80053; 80306; 80307; 81001; 82550; 84443; 84484; 85025; 87635; 93005; 96361; 96374; 96375; 99285; J2060; J3411; J7030; U0002

== ENCOUNTER 2022-03-12 23:54 | Emergency (ER) | payer MEDICAID ==
[2022-03-13] MEDS ORDERED: Haloperidol Lactate 5 MG/ML SDV IVPUSH ONE (03:00)
[2022-03-13 03:21] LABS: ESTIMATED GFR 122 mL/min (>60)
== END 2022-03-13 08:20 | disposition home or self-care (01) ==
LOC: JD.ED 23:54
DX: R44.1 Visual hallucinations (principal); Z88.8 Allergy status to other drugs, medicaments and biological substances; Z86.16 Personal history of COVID-19
CPT/HCPCS: 36415; 80053; 80306; 80307; 81003; 85025; 96374; 99285; J1630; 99282

== ENCOUNTER 2022-03-29 11:46 | Emergency (ER) | payer MEDICAID ==
[2022-03-29] MEDS ORDERED: Sodium Chloride 0.9% 10 ML Syringe FLUSH PRN (12:13)
[2022-03-29] MEDS ORDERED: Sodium Chloride 0.9% 1,000 ML IV ONE (12:13)
[2022-03-29] MEDS ORDERED: Metoclopramide 10 MG/2 ML SDV IVPUSH ONE (12:13)
[2022-03-29 13:21] LABS: ESTIMATED GFR 122 mL/min (>60)
== END 2022-03-29 13:45 | disposition home or self-care (01) ==
LOC: JD.ED 11:46
DX: F10.129 Alcohol abuse with intoxication, unspecified (principal); F17.210 Nicotine dependence, cigarettes, uncomplicated; Z91.048 Other nonmedicinal substance allergy status; Z86.16 Personal history of COVID-19
CPT/HCPCS: 36415; 80053; 80306; 80307; 83735; 85025; 96361; 96374; 99284; J2765; J3490; J7030; 99282